=== PATIENT | male | born 1980 | race Caucasian/White ===

== ENCOUNTER 2017-04-25 17:10 | Emergency (ER) | payer SELFPAY ==
--- NOTE | 2017-04-25 17:37 | ER Document Report ---
ED General - General Stated Complaint: THROAT SWELLING Time Seen by Provider: 04/25/17 17:28 Mode of Arrival: Medic Information source: Patient Notes: 36 yo male brought in my ambulance, while eating bowl of fruit loops, he told his dad that he thought that he was choking at 3:51 pm. He states it is neck muscle is spasming and it is drawing up my tongue too-dysarthric. 20mg Loratadine given at home. No fever. No chest or abdominal pain. Hx of tighting up in back several years ago. PMH: 60 days clean from Heroin snorting, degenertive disc disease, percocet 15 -6 pills per day , 40mg methadone per day. -pain management [facility]. Has had pain is whole life. 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 Parents in the room with him very worried because he is never like this. 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 Surgical Hx: Negative Review of Systems - Review of Systems Constitutional: No symptoms reported EENT: No symptoms reported Cardiovascular: No symptoms reported Respiratory: No symptoms reported Gastrointestinal: No symptoms reported Genitourinary: No symptoms reported Male Genitourinary: No symptoms reported Musculoskeletal: See HPI Skin: No symptoms reported Hematologic/Lymphatic: No symptoms reported Neurological/Psychological: No symptoms reported Physical Exam - Vital signs Vitals: Pulse Ox 100 04/25/17 17:27 Interpretation: Tachycardic - General General appearance: Alert, Anxious, Other - dysarthric speech In distress: Severe Notes: head pulled to the left and left arm adducting abnormally, he is yelling and frustrated stating it is his neck muscle again. denies any other drugs besides the methadone and oxycodone. - HEENT Head: Normocephalic, Atraumatic Eyes: Normal Pupils: PERRL - small pupils Pharynx: Normal - after benadryl affect Neck: Supple - after benadryl, in spasms prior to it. - Respiratory Respiratory status: No respiratory distress Chest status: Nontender Breath sounds: Normal Chest palpation: Normal - Cardiovascular Rhythm: Regular Heart sounds: Normal auscultation Murmur: No - Abdominal Inspection: Normal Distension: No distension Bowel sounds: Normal Tenderness: Nontender Organomegaly: No organomegaly - Back Back: Normal, Nontender - Extremities General upper extremity: Normal inspection, Nontender, Normal color, Normal ROM , Normal temperature General lower extremity: Normal inspection, Nontender, Normal color, Normal ROM , Normal temperature, Normal weight bearing. No: Brigette's sign - Neurological Neuro grossly intact: Yes Cognition: Normal Orientation: AAOx4 [place] Coma Scale Eye Opening: Spontaneous [place] Coma Scale Verbal: Oriented [place] Coma Scale Motor: Obeys Commands [place] Coma Scale Total: 15 Speech: Normal Motor strength normal: LUE, RUE, LLE, RLE Sensory: Normal - Psychological Associated symptoms: Agitated - Skin Skin Temperature: Warm Skin Moisture: Dry Skin Color: Normal Skin irregularity: negative: Rash Course - Re-evaluation Re-evalutation: 04/25/17 17:53 parents in the room, sudden relief of symptomatic muscle spasms with Benadryl 50 mg IV. He sat on the side of the bed stood and his speech is normal he is not dizzy and vitals are stable. - Vital Signs Vital signs: Temp Pulse Resp BP Pulse Ox 128/88 H 99 04/25/17 18:01 04/25/17 18:01 - Laboratory Result Diagrams: 04/25/17 17:20 04/25/17 17:20 Laboratory results interpreted by me: 04/25/17 04/25/17 04/25/17 17:20 17:20 17:20 RBC 5.88 H Hgb 17.1 H Glucose 127 H Creatine Kinase 46 L Discharge - Discharge Clinical Impression: Dystonic movements, chronic pain Opiate dependence Qualifiers: Substance use status: uncomplicated Qualified Code(s): F11.20 - Opioid dependence, uncomplicated Condition: Good Disposition: HOME, SELF-CARE Instructions: Use of Diphenhydramine, Dystonic Reaction to Medication ([facility]) Additional Instructions: to er any concerns any sign of muscle tension, take diphenhydramine 50mg by mouth, can be repeated every 4 hours as needed see your doctor for follow up Please complete the patient satisfaction survey if you get one, and return it.. If you do not receive a survey, then you can go to the [facility] website, [email or web address] and place your comments about your very good care. Thank you very much. It was a pleasure being your medical provider today.
[2017-04-25] MEDS ORDERED: KETOROLAC TROMETHAMINE INJ/PF 30 MG/1 ML SDV IV ONE (17:43)
[2017-04-25] MEDS ORDERED: DIPHENHYDRAMINE HCL 50 MG/ML VIAL IV ONE (17:43)
[2017-04-25] MEDS ORDERED: NORMAL SALINE 1000 ML 1,000 ML IV ONE (17:55)
[2017-04-25 18:01] LABS: HEMATOCRIT 49.8 % (37.9-51.0); HEMOGLOBIN 17.1 g/dL (13.5-17.0); HGB HCT DIFFERENCE 1.5; MEAN CORPUSCULAR HEMOGLOBIN 29.1 pg (27.0-33.4); MEAN CORPUSCULAR HGB CONC 34.4 g/dL (32.0-36.0); MEAN CORPUSCULAR VOLUME 85 fl (80-97); RED BLOOD COUNT 5.88 10^6/uL (4.35-5.55); RED CELL DISTRIBUTION WIDTH 12.5 % (11.5-14.0); WHITE BLOOD COUNT 8.9 10^3/uL (4.0-10.5)
[2017-04-25 18:05] LABS: ALANINE AMINOTRANSFERASE 36 U/L (21-72); ALBUMIN 4.3 g/dL (3.5-5.0); ALKALINE PHOSPHATASE 74 U/L (38-126); ANION GAP 12 (5-19); ASPARTATE AMINO TRANSFERASE 28 U/L (17-59); BILIRUBIN,DIRECT 0.3 mg/dL (0.0-0.4); BILIRUBIN,TOTAL 0.6 mg/dL (0.2-1.3); BLOOD UREA NITROGEN 8 mg/dL (7-20); CALCIUM 9.7 mg/dL (8.4-10.2); CARBON DIOXIDE 27 mmol/L (22-30); CHLORIDE 102 mmol/L (98-107); CREATININE RESULT 0.82 mg/dL (0.52-1.25); GLUCOSE 127 mg/dL (75-110); POTASSIUM 4.2 mmol/L (3.6-5.0); SODIUM 140.9 mmol/L (137-145); TOTAL PROTEIN 7.4 g/dL (6.3-8.2)
[2017-04-25 18:18] LABS: BASOPHILS % (MANUAL) 0 % (0-2); EOSINOPHILS % (MANUAL) 6 % (0-6); LYMPHOCYTES % (MANUAL) 30 % (13-45); RBC MORPHOLOGY COMMENT NORMO-CYTIC/CHROMIC; TOTAL CELLS COUNTED 100
--- NOTE | 2017-04-25 22:50 | EKG REPORT ---
SEVERITY:- OTHERWISE NORMAL ECG - SINUS TACHYCARDIA ATRIAL PREMATURE COMPLEX : Confirmed by: Norma Connolly 25-Apr-2017 22:49:40
[2017-04-26 14:11] VITALS: BP 128/88
== END 2017-04-25 19:14 | disposition home or self-care (01) ==
LOC: ER 17:10
DX: M62.838 Other muscle spasm (principal); R47.1 Dysarthria and anarthria; M08.9 Juvenile arthritis, unspecified; F41.9 Anxiety disorder, unspecified; G89.29 Other chronic pain; F11.20 Opioid dependence, uncomplicated; R00.0 Tachycardia, unspecified; F17.200 Nicotine dependence, unspecified, uncomplicated
CPT/HCPCS: 93005; 99284; 96361; 96374; 96375; 36415; 82550; 83735; 85025; 80053; 93010; J1200; J1885; J7030

== ENCOUNTER 2018-03-15 21:15 | Emergency (ER) | payer SELFPAY ==
[2018-03-15 21:25] VITALS: BP 132/84
--- NOTE | 2018-03-15 22:34 | ER Document Report ---
ED Medical Screen (RME) - General Chief Complaint: Abscess Stated Complaint: RIGHT LEG/KNEE SWELLING Time Seen by Provider: 03/15/18 22:31 Mode of Arrival: Wheelchair Information source: Patient Notes: 37-year-old male presents to ED for an infected right knee. He states he had a visit on Wednesday and his girlfriend popped it. He states his been in red and inflamed since then. He does have warmth swelling redness and fever to the right knee. Is alert and oriented respirations regular and unlabored speaking in full sentences. Does have pedal pulses palpable. I have greeted and performed a rapid initial assessment of this patient. A comprehensive ED assessment and evaluation of the patient, analysis of test results and completion of medical decision making process will be conducted by an additional ED providers. TRAVEL OUTSIDE OF THE [place] IN LAST 30 DAYS: No - Related Data Allergies/Adverse Reactions: No Known Allergies Allergy (Unverified 04/25/17 18:58) Physical Exam - Vital signs Vitals: Temp Pulse Resp BP Pulse Ox 98.2 F 114 H 20 132/84 H 100 03/15/18 21:16 03/15/18 21:16 03/15/18 21:16 03/15/18 21:16 03/15/18 21:16 Course - Vital Signs Vital signs: Temp Pulse Resp BP Pulse Ox 98.2 F 114 H 20 132/84 H 100 03/15/18 21:16 03/15/18 21:16 03/15/18 21:16 03/15/18 21:16 03/15/18 21:16
--- NOTE | 2018-03-16 | RADIOLOGY REPORT (SQ) ---
EXAM DESCRIPTION: XR KNEE 4 OR MORE VIEWS COMPLETED DATE/TME: 03/15/2018 22:32 CLINICAL HISTORY: 37 years, Male, infected swollen left knee, swelling to calf COMPARISON: EXAM DESCRIPTION: CLINICAL HISTORY: infected swollen left knee, swelling to calf COMPARISON: None FINDINGS: 4 view(s) submitted. No fracture or dislocation is identified. Bone marrow attenuation is unremarkable. No radiopaque foreign body is identified. IMPRESSION: No acute fracture or dislocation. NUMBER OF VIEWS: TECHNIQUE: LIMITATIONS: None. FINDINGS: IMPRESSION: 2010 [facility]- All Rights Reserved
--- NOTE | 2018-03-16 00:30 | ER Document Report ---
ED General - General Chief Complaint: Abscess Stated Complaint: RIGHT LEG/KNEE SWELLING Time Seen by Provider: 03/15/18 22:31 Mode of Arrival: Wheelchair Notes: Patient is a 37-year-old male that presents to the emergency department for chief complaint of right knee abscess. Patient states that before her pain came about a week ago, he had a pimple on his knee, that his girlfriend tried to pop with tweezers, and over the last week it has become progressively worse, more red, and painful so he decided to come to the emergency department. He denies prior history of abscesses. Denies history of MRSA. He currently rates his pain as a 5 out of 10, worse with palpation over the area, he does not feel pain inside the knee itself. Has not noticed any knee swelling outside of just over top of the kneecap. Denies having any fevers, chills, night sweats, chest pain, nausea, vomiting or abdominal pain. Past Medical History: Spondyloarthropathy Past Surgical History: Hand surgery Social History: Denies tobacco, alcohol or drug use Family History: Reviewed and noncontributory for presenting illness Allergies: Reviewed, see documented allergy list. REVIEW OF SYSTEMS: Unless otherwise stated in this report the patient's positive and negative responses for review of systems for constitutional, eyes, ENT, cardiovascular, respiratory, gastrointestinal, neurological, genitourinary, musculoskeletal, and integumentary systems and related systems to the presenting problem are either as stated in the HPI or were not pertinent or were negative for the symptoms and/or complaints related to the presenting medical problem. PHYSICAL EXAMINATION: Vital signs reviewed, nursing noted reviewed. GENERAL: Well-appearing, well-nourished and in no acute distress. HEAD: Atraumatic, normocephalic. EYES: Eyes appear normal, extraocular movements intact, sclera anicteric, conjunctiva are normal. ENT: nares patent, oropharynx clear without exudates. Moist mucous membranes. NECK: Normal range of motion, supple without lymphadenopathy LUNGS: Breath sounds clear to auscultation bilaterally and equal. No wheezes rales or rhonchi. HEART: Regular rate and rhythm without murmurs ABDOMEN: Soft, nontender, normoactive bowel sounds. No rebound, guarding, or rigidity. No masses appreciated. EXTREMITIES: Over the right knee, as a small abscess, no significant fluctuance , does come to a headache, no active drainage, there is surrounding erythema measuring approximately 4 cm in diameter, the knee itself is not painful with range of motion, there is no circumferential erythema, or knee effusion appreciated. The rest of the patient's extremity exam is grossly unremarkable. Nontender, good range of motion, no pitting or edema. NEUROLOGICAL: No focal neurological deficits. Moves all extremities spontaneously Motor and sensory grossly intact on exam. PSYCH: Normal mood, normal affect. SKIN: Warm, Dry, normal turgor, no rashes or lesions noted on exposed skin TRAVEL OUTSIDE OF THE [place] IN LAST 30 DAYS: No - Related Data Allergies/Adverse Reactions: No Known Allergies Allergy (Unverified 04/25/17 18:58) Past Medical History - General Information source: Patient - Social History Smoking Status: Never Smoker Family History: Reviewed & Not Pertinent Physical Exam - Vital signs Vitals: Temp Pulse Resp BP Pulse Ox 98.2 F 114 H 20 132/84 H 100 03/15/18 21:16 03/15/18 21:16 03/15/18 21:16 03/15/18 21:16 03/15/18 21:16 Course - Re-evaluation Re-evalutation: Patient seen and examined vital signs reviewed. Patint was evaluated and treated as appropriate for the patient's presenting symptoms and complaint, with consideration of any critical or life threatening conditions that may be associated with their obtained history and exam as noted above. Patient was treated with incision and drainage, updated on his tetanus shot, and given a first dose of Keflex and Bactrim The patient was re-evaluated and was improved, tolerated procedure well as noted Evaluation was most consistent with abscess with cellulitis of the right knee, patient be discharged on Bactrim and Keflex, advised to follow-up with the wound care center, and given a primary care physician to follow-up with. Plan of care was discussed with the patient at this point, after careful consideration I feel that that patient can be discharged from the emergency department, the patient was educated treatments and reasons to return to the emergency department based on their presumed diagnosis as noted above, they were advised to followup with a primary care physician in 2-3 days. Patient was agreeable to plan of care. *Note is created using voice recognition software and may contain spelling, syntax or grammatical errors. - Vital Signs Vital signs: Temp Pulse Resp BP Pulse Ox 98.2 F 114 H 20 132/84 H 100 03/15/18 21:16 03/15/18 21:16 03/15/18 21:16 03/15/18 21:16 03/15/18 21:16 Procedures - Incision and Drainage Right Knee Type: Simple Anesthetic type: 1% Lidocaine w/epi mL's of anesthetic: 1 Blade size: 11 I&D procedure: Shurclens applied, Sterile dressing applied Incision Method: Incision made by scalpel Amount/type of drainage: 1-2 mL's Notes: 03/16/18 02:26 Patient tolerated well without complication Discharge - Discharge Clinical Impression: Abscess Cellulitis Qualifiers: Site of cellulitis: extremity Site of cellulitis of extremity: lower extremity Laterality: right Qualified Code(s): L03.115 - Cellulitis of right lower limb Condition: Stable Disposition: HOME, SELF-CARE Instructions: Abscess ([facility]), Post Incision and Drainage Additional Instructions: Please return to the emergency department if you have any worsening, or concern of your symptoms. Please return to the emergency department if you develop chest pain, difficulty breathing, severe abdominal pain, or ongoing vomiting. Please follow-up with your primary care physician in 2-3 days and any other recommended physicians. If prescribed, take all medications as directed. If you have any questions or concerns do not hesitate to return the emergency department for evaluation. Keep the wound clean and dry, you can apply a triple antibiotic such as Neosporin to it twice daily if you would like, do not use anything like hydrogen peroxide or alcohol to the wound. Prescriptions: Cephalexin Monohydrate [Keflex 500 mg Capsule] 500 mg PO Q8H 7 Days #21 capsule Sulfamethoxazole/Trimethoprim [Bactrim Ds Tablet] 1 each PO BID 7 Days #14 tablet Referrals: ELIDIA BEST MD [ACTIVE STAFF] - Follow up in 3-5 days (PRIMARY CARE PHYSICIAN ) Wound Care [Provider Group] - Follow up in 3-5 days
[2018-03-16] MEDS ORDERED: LIDOCAINE 1%/EPINEPHRINE INJ 20 ML VIAL INJ ONE (00:48)
[2018-03-16] MEDS ORDERED: CEPHALEXIN 500 MG CAPSULE PO ONE (00:50)
[2018-03-16] MEDS ORDERED: SULFAMETHOXAZOLE/TRIMETHOPRIM 800-160 MG TABLET PO ONE (00:51)
[2018-03-16] MEDS ORDERED: DIPH/PERTUSS(ACELL)/TETANUS VAC/PF 0.5 ML SYR (>=10YO) IM ONE (00:54)
== END 2018-03-16 02:50 | disposition home or self-care (01) ==
LOC: ER 21:15
DX: L02.415 Cutaneous abscess of right lower limb (principal); L03.115 Cellulitis of right lower limb
CPT/HCPCS: 90471; 90715; 99283; J3490

== ENCOUNTER 2018-09-08 15:01 | Emergency (ER) | payer SELFPAY ==
[2018-09-08 15:20] VITALS: BP 133/83
== END 2018-09-08 17:29 | disposition left against medical advice (07) ==
LOC: ER 15:01
DX: Z53.21 Procedure and treatment not carried out due to patient leaving prior to being seen by health care provider (principal)